=== PATIENT | female | born 1950 | race African-American/Black ===

== ENCOUNTER → 2018-08-15 | Outpatient (CLI) | payer MEDICARE ==
[~2018-08-15] MED LIST: ALLO100T PO; AMLO10TA PO; AMLO5TAB2 PO; ASP325TEC PO; ASPI-892 PO; ATOR20TA66 PO; Amlodipine Besylate PO; Aspirin PO; Atorvastatin Calcium PO; CALC625T66 PO; CARV25TA PO; CHOL100011 PO; CLN.1T PO; CLON0.1T14 PO; CLON0.3T4 PO; CLPD75T PO; DCS100C PO; FURO20TA4 PO; GABA100C PO; INDM25C PO; INDO50CA PO; LD5PT TOP; LISI40TA PO; Lisinopril PO; MAGN400T26 PO; POTA10TA36 PO; SULF1TAB23 PO
--- NOTE | 2018-08-15 15:43 | Diagnostic Imaging Report ---
INDICATION: Thyrotoxicosis. TECHNIQUE: Grayscale sonographic images of the thyroid gland. CORRELATION STUDY: None. FINDINGS: RIGHT LOBE: 5.1 x 2.0 x 2.6 cm. Centrally, there is a mixed solid and cystic nodule suggested. This measures approximately 2.4 x 1.5 x 1.8 cm. A few microcalcifications are suspect. Some vascular flow within the solid component. LEFT LOBE: 4.8 x 1.7 x 1.7 cm. Along the peripheral, lateral margins, indeterminate whether this is within the thyroid gland or just adjacent to the thyroid gland is a relatively isoechoic nodule measuring approximately 13 x 9 x 9 mm. Isthmus appears unremarkable. IMPRESSION: Borderline enlarged thyroid gland. A mixed solid and cystic mass, dominant mass, within the central aspect of the right lobe. This is indeterminate. There are some atypical features and possibility of a neoplasm would be difficult to exclude. Given no priors for comparison, fine-needle aspiration and/or biopsy would be recommended. There is additional hypo to slightly isoechoic nodule, indeterminate whether this is within the thyroid gland versus just adjacent to the thyroid gland. (Normal gland size: 4-5 x 2 x 2 cm) Dictated by: Dictated on workstation # [id number]
== END ==
LOC: RAD 12:48
PROVIDERS: ATTEND Internal Medicine
DX: E04.1 Nontoxic single thyroid nodule (principal); E05.80 Other thyrotoxicosis without thyrotoxic crisis or storm; M17.0 Bilateral primary osteoarthritis of knee
CPT/HCPCS: 76536

== ENCOUNTER → 2019-10-31 | Outpatient (CLI) | payer MEDICARE ==
--- NOTE | 2019-11-01 11:16 | Diagnostic Imaging Report ---
INDICATION: Hyperthyroidism. Patient was administered 207 uCi of I-123 and a 4 hour and 24-hour thyroid uptake as well as thyroid scan was performed. 24 thyroid uptake is elevated at 58%. Normal values are 10-30%. Thyroid scan shows fairly homogeneous uptake of activity throughout both lobes. No definite hot or cold nodules are seen. IMPRESSION: Elevated uptake consistent with hyperthyroidism. No hot or cold nodules are detected. Dictated by: Dictated on workstation # [id number]
== END ==
LOC: CARD 10:24
PROVIDERS: ATTEND Internal Medicine
DX: E05.90 Thyrotoxicosis, unspecified without thyrotoxic crisis or storm (principal)
CPT/HCPCS: 78014

== ENCOUNTER → 2020-07-27 | Outpatient (CLI) | payer MEDICARE | LOC: CARD 12:49 | PROVIDERS: ATTEND Physician Assistant | DX: I65.23 Occlusion and stenosis of bilateral carotid arteries (principal); I11.9 Hypertensive heart disease without heart failure; I08.3 Combined rheumatic disorders of mitral, aortic and tricuspid valves; E78.5 Hyperlipidemia, unspecified | CPT/HCPCS: 93306 ==

== ENCOUNTER → 2021-01-15 | Outpatient (CLI) | payer MEDICARE ==
--- NOTE | 2021-01-15 17:01 | Diagnostic Imaging Report ---
PROCEDURE: US Thyroid. TECHNIQUE: Multiple Real-time grayscale images were obtained of the thyroid in various projections. INDICATION: Surveillance of thyroid nodules. COMPARISON: 08/15/2018. FINDINGS: The right lobe measures 5.1 x 1.6 x 2.1 cm. There is a predominantly solid nodule in the upper pole of the right lobe which contains a few small anechoic areas. This is predominantly isoechoic. This is wider than tall with smooth margins and some macrocalcifications. This measures 2.2 x 1.4 x 1.8 cm. The left lobe measures 5.5 x 1.5 x 1.9 cm. There is a predominantly solid hypoechoic wider than tall smooth nodule with no calcification present. This measures 1.2 x 0.8 x 0.9 cm. Comparison with the previous examination shows both nodules present at that time without any significant change in appearance for the past 2 years. IMPRESSION: Stable bilateral thyroid nodules. The larger nodule would score a TI-RADS 4. Dictated by: Dictated on workstation # [id number]
== END ==
LOC: RAD 11:57
PROVIDERS: ATTEND Internal Medicine Endocrinology, Diabetes & Metabolism
DX: E04.2 Nontoxic multinodular goiter (principal)
CPT/HCPCS: 76536

== ENCOUNTER → 2021-06-04 | Outpatient (CLI) | payer MEDICARE ==
--- NOTE | 2021-06-04 12:19 | Diagnostic Imaging Report ---
Digital mammogram bilateral screening COMPARISON: There are no prior studies available for comparison. The previous mammogram of 03/20/2012 is not available for comparison at this time. At this time, there are no current complaints. There are scattered fibroglandular densities in both breasts which could obscure a lesion. Benign-appearing vascular calcifications are also seen in each breast as well as a few benign-appearing scattered parenchymal calcifications in each breast, particularly the left breast. There is also a benign-appearing nodular density in the upper outer aspect of the left breast. This was also reported on the 03/20/2012 exam. I suspect that this is most likely a small lymph node. There is no primary or secondary sign of malignancy noted however. IMPRESSION: 1. There is no evidence of malignancy. 2. The patient should have her annual bilateral screening mammogram on schedule in May of 2022. ACR category 1 ACR BI-RADS Category 1: Negative. Result letter will be mailed to the patient. Note: At least 10% of breast cancer is not imaged by mammography. Dictated by: Dictated on workstation # [id number]
== END ==
LOC: RAD 10:00
PROVIDERS: ATTEND Internal Medicine
DX: Z12.31 Encounter for screening mammogram for malignant neoplasm of breast (principal)
CPT/HCPCS: 77063; 77067